=== PATIENT | female | born 1945 | race Caucasian/White ===

== ENCOUNTER 2016-08-02 10:57 | Day surgery (SDC) | payer OTHER ==
--- NOTE | ~2016-08-02 | EGD ---
EGD REPORT [facility] [address] [place]. [id number] NAME: MARILEE DOBBS : [birth year] STATUS : [facility]#: [id number] AGE: 71 ADM/REG DATE : 08/02/16 MR#: [id number] REPORT SERV DATE: 08/02/16 DICTATED BY: JOE CANO DATE: 08/02/16 REPORT STATUS : Draft TRANSCRIBED BY: [facility] DATE: 08/02/16 Endoscopy Center Patient Name: Marilee Dobbs Date of : 1945 Attending MD: JOE CANO MD Procedure Date No Time: 08/02/2016 Procedure: Colonoscopy Indications: High risk colon cancer surveillance: Personal history of colonic polyps Referring MD: BALDOMERO DOMINGUEZ Medicines: as per anesthesia Complications: No immediate complications. Procedure: Pre-Anesthesia Assessment: - ASA Grade Assessment: II - A patient with mild systemic disease. After I obtained informed consent, the scope was passed under direct vision. Throughout the procedure, the patient's blood pressure, pulse, and oxygen saturations were monitored continuously. The PCF [id number] was introduced through the anus and advanced to the cecum, identified by appendiceal orifice and ileocecal valve. The colonoscopy was performed without difficulty. The patient tolerated the procedure. The quality of the bowel preparation was adequate to identify polyps. Findings: The perianal and digital rectal examinations were normal. A sessile polyp was found in the transverse colon. The polyp was 4 mm in size. The polyp was removed with a cold biopsy forceps. Resection and retrieval were complete. Internal hemorrhoids were found during endoscopy and were mild. Impression: - One 4 mm polyp in the transverse colon. Resected and retrieved. - Internal hemorrhoids. Recommendation: - Await pathology results. - Repeat colonoscopy for surveillance based on pathology results. Procedure Code(s): --- Professional --- 91677, Colonoscopy, flexible, proximal to splenic flexure; with biopsy, single or multiple Diagnosis Code(s): --- Professional --- EGD REPORT [facility] [place]. [address] NAME: MARILEE DOBBS : [birth year] STATUS : [facility]#: [id number] AGE: 71 ADM/REG DATE : 08/02/16 MR#: [id number] REPORT SERV DATE: 08/02/16 DICTATED BY: JOE CANO. DATE: 08/02/16 REPORT STATUS : Draft TRANSCRIBED BY: [employer] DATE: 08/02/16 D12.3, Benign neoplasm of transverse colon K64.8, Other hemorrhoids Z86.010, Personal history of colonic polyps CPT copyright 2013 [employer]. All rights reserved. The codes documented in this report are preliminary and upon surgical coder review may be revised to meet current compliance requirements. JOE CANO MD 08/02/2016 3:54 PM This report has been signed electronically. Number of Addenda: 0 Note Initiated On: 08/02/2016 3:14 PM Scope Withdrawal Time 0 hours 8 minutes 53 seconds [id number] [place] [id number]
[~2016-08-02 10:57] MED LIST: ACCU20 PO; ALAVERT10 MG PO; ASAB PO; ATEN25 PO; ATEN50 PO; BEN25 PO; DIOV80 PO; DULERA 200 MCG/13 GM INH; FLONASE NAS; FLOVENT110 INH; FOLIC ACID400 MC1 PO; FOLIC PO; GAS-X80 MG PO; IRON325 MG PO; KLOR-CON M2020 MEQ PO; LIBRAX PO; MAX25 PO; MICRO-K10 MEQ PO; MOBIC15 MG PO; MTX2.5 PO; NEUR300 PO; NEUR400 PO; NEXIUM40 PO; NORV5 PO; P5 PO; SINGULAIR1 PO; ULTRAM50 PO; VITD PO; ZANAFLEX 4 MG TA4 MG PO; ZANTAC150 MG PO; ZOL50 PO; [UNRECOGNIZED DRUG - OTHER] OR
== END 2016-08-02 23:59 | disposition home health service (06) ==
LOC: DMU 10:57
PROVIDERS: Internal Medicine Gastroenterology
PROC: 0DBL8ZX Excision of Transverse Colon, Via Natural or Artificial Opening Endoscopic, Diagnostic (ICD-10-PCS; principal; 2016-08-02 12:00)
DX: D12.3 Benign neoplasm of transverse colon (principal); K64.8 Other hemorrhoids; I10 Essential (primary) hypertension; Z86.010 Personal history of colon polyps; Z88.2 Allergy status to sulfonamides
CPT/HCPCS: 88305